=== PATIENT | male | born 1970 | race Caucasian/White ===

== ENCOUNTER 2021-08-10 01:03 | Emergency (ER) | payer OTHER ==
[~2021-08-10] VITALS: Ht 180.3 cm; Wt 113.4 kg
[2021-08-10 01:11] VITALS: BP_SYST 150
--- NOTE | 2021-08-10 01:18 | NUR ---
Dr Nuñez at bedside for eval
--- NOTE | 2021-08-10 01:18 | NUR ---
PT TO BED 7
--- NOTE | 2021-08-10 01:19 | NUR ---
Pt bib friend. (+) etoh. s/p fall unknown ko / loc. pt noted with hematoma and open wound to left eye. denies pain at this time. unknown amount of alcohol consumed. wound care provided, pt seferino well. bleeding controlled. moving all extremities without difficulty. will continue to monitor.
[2021-08-10] MEDS ORDERED: DIPH-TET-PERTUS Vaccine 0.5 ML VIAL (ADACEL) I.M. ONE (01:30)
--- NOTE | 2021-08-10 01:38 | NUR ---
Pt states he received a tdap shot approximately [address] Nuñez made aware.
[2021-08-10] MEDS ORDERED: LIDOCAINE 1% 10 MG/ML, 20 ML MDV INJ ONE (01:45)
--- NOTE | 2021-08-10 01:46 | NUR ---
Dr Nuñez at bedside for laceration repair to left eye.
--- NOTE | 2021-08-10 02:41 | NUR ---
Pt ambulated to bathroom unassisted. nad.
--- NOTE | 2021-08-10 02:55 | NUR ---
Pt discharged. ACI reviewed with pt, verbalized understanding. to follow up with pmd within the next 2-3 days or return to ed if condition worsens. to have stitches removed within the next 5-7 days. vs stable. ambulatory with steady gait unassisted. picked up by friend to be transported home. nad.
[2021-08-10 02:58] VITALS: BP_SYST 150
== END 2021-08-10 02:57 | disposition home or self-care (01) ==
LOC: SED 01:03
DX: S01.112A Laceration without foreign body of left eyelid and periocular area, initial encounter (principal); F10.129 Alcohol abuse with intoxication, unspecified; W18.39XA Other fall on same level, initial encounter; Y93.89 Activity, other specified; Y92.89 Other specified places as the place of occurrence of the external cause; Y99.8 Other external cause status
CPT/HCPCS: 12011; 99282; J2001